=== PATIENT | male | born 1980 | race Caucasian/White ===

== ENCOUNTER 2017-10-25 06:36 | Emergency (ER) | payer MEDICARE, MEDICAID ==
[~2017-10-25] VITALS: Ht 175.3 cm; Wt 102.3 kg
[2017-10-25 08:08] LABS: BASOPHILS # (AUTO) 0.01 x10^3/uL (0-0.1); BASOPHILS % (AUTO) 0 % (0-1); EOSINOPHILS # (AUTO) 0.06 x10^3/uL (0-0.4); EOSINOPHILS % (AUTO) 1 % (1-7); LYMPHOCYTES # (AUTO) 0.74 x10^3/uL (1-3.4); LYMPHOCYTES % (AUTO) 11 % (22-44); MD NO; MEAN CORPUSCULAR HEMOGLOBIN 30.6 pg (27.5-34.5); MEAN CORPUSCULAR HGB CONC 33.9 g/dL (33.2-36.2); MEAN CORPUSCULAR VOLUME 90.4 fL (81-97); MEAN PLATELET VOLUME 6.6 fL (7.4-10.4); MONOCYTES # (AUTO) 1.04 x10^3/uL (0.2-0.8); MONOCYTES % (AUTO) 16 % (2-9); NEUTROPHILS # (AUTO) 4.63 x10^3/uL (1.8-6.8); NEUTROPHILS % (AUTO) 71 % (42-75); PLATELET COUNT 231 x10^3/uL (130-400); RED BLOOD COUNT 3.32 x10^6/uL (4.38-5.82); RED CELL DISTRIBUTION WIDTH 13.1 % (9.4-14.8)
[2017-10-25 08:22] LABS: ALBUMIN 3.5 g/dL (3.4-5.0); ANION GAP 9 mmol/L (5-15); CALCIUM 9.1 mg/dL (8.5-10.1); CHLORIDE 96 mmol/L (98-107)
[2017-10-25] MEDS ORDERED: phoslo PO (08:45)
[2017-10-25] MEDS ORDERED: CALC0.25 PO (08:45)
[2017-10-25 09:37] VITALS: BP 130/82
== END 2017-10-25 09:44 | disposition home or self-care (01) ==
LOC: ED 09:38
DX: M77.9 Enthesopathy, unspecified (principal); N18.3 Chronic kidney disease, stage 3 (moderate); Z99.2 Dependence on renal dialysis
CPT/HCPCS: 29260; 36415; 71046; 80048; 82040; 85025; 93005; 99285

== ENCOUNTER 2017-11-13 15:46 | Emergency (ER) | payer MEDICARE, MEDICAID ==
[~2017-11-13] VITALS: Ht 177.8 cm; Wt 104.0 kg
[~2017-11-13 15:46] MED LIST: CALC0.25 PO; phoslo PO
[2017-11-13 15:48] VITALS: BP 122/81
== END 2017-11-13 16:22 | disposition home or self-care (01) ==
LOC: ED 16:18
DX: K08.89 Other specified disorders of teeth and supporting structures (principal); Z88.8 Allergy status to other drugs, medicaments and biological substances
CPT/HCPCS: 99283

== ENCOUNTER → 2018-02-01 | Outpatient (CLI) | payer MEDICAID, MEDICARE | END | disposition home or self-care (01) | LOC: CVU 07:08 | PROVIDERS: ATTEND Internal Medicine Nephrology | DX: I07.1 Rheumatic tricuspid insufficiency (principal); N18.6 End stage renal disease; Z76.82 Awaiting organ transplant status | CPT/HCPCS: 93306 ==

== ENCOUNTER 2019-08-14 12:46 | Emergency (ER) | payer MEDICARE, OTHER ==
[~2019-08-14] VITALS: Ht 177.8 cm; Wt 118.6 kg
--- NOTE | 2019-08-14 13:17 | NUR ---
PT AMBULATORY TO E FROM TRIAGE WITH STEADY GAIT. PT WEARING MASK FOR COUGH. PLACED ON ISOLATION PRECAUTIONS PER BECKY GARZA. 39 Y/O M PRESENT STATING "DRY COUGH FOR ONE WEEK AND I HAD DIARRHEA ONCE THIS MORNING." DENIES PAIN, ABD PAIN, FEVER, TRAVELING, CHILLS, CP, SOB, N/V. A&OX4. CALL LIGHT IN REACH. FALL PRECUATIONS IN PLACE. SIDE RAILS UPX2. BECKY GARZA AT BEDSIDE FOR EVALUATION.
--- NOTE | 2019-08-14 14:40 | NUR ---
BECKY GARZA AT BEDSIDE DISCUSSING DISCHARGE POC WITH PT AND NEED TO ISOLATE AT HOME, PT VERBALIZED UNDERSTANDING AND OF DISCHARGE INSTRUCTIONS. AWAITING CHART AND D/C PAPERS FROM [facility].
--- NOTE | 2019-08-14 15:05 | NUR ---
REPORT AND TRANSFER OF CARE TO JEREMIAH WHITLEY AT THIS TIME
[2019-08-14 15:16] VITALS: BP 128/83
== END 2019-08-14 15:18 | disposition home or self-care (01) ==
LOC: ED 14:40
DX: B34.9 Viral infection, unspecified (principal)
CPT/HCPCS: 71045; 99283

== ENCOUNTER 2019-09-06 15:39 | Emergency (ER) | payer MEDICARE, MEDICAID ==
[~2019-09-06] VITALS: Ht 175.3 cm; Wt 118.2 kg
--- NOTE | 2019-09-06 16:01 | NUR ---
PT TO ROOM 31 PER PEDIS. PT IS A KIDNEY TRANSPLANT PATIENT, AND HAS A COUGH WITH MINIMAL SPUTUM. ORDERS TO RECEIVE A COVID TEST. MD AT BEDSIDE.
--- NOTE | 2019-09-06 16:13 | NUR ---
COVID TEST PERFORMED IN RIGHT NARIS, SWIRLING FOR 30 SEC. LAB AT BEDSIDE, XRAY AT BEDSIDE.
[2019-09-06 16:46] LABS: BASOPHILS # (AUTO) 0.02 x10^3/uL (0-0.1); BASOPHILS % (AUTO) 0 % (0-1); EOSINOPHILS # (AUTO) 0.02 x10^3/uL (0-0.4); EOSINOPHILS % (AUTO) 0 % (1-7); LYMPHOCYTES # (AUTO) 0.97 x10^3/uL (1-3.4); LYMPHOCYTES % (AUTO) 13 % (22-44); MD NO; MEAN CORPUSCULAR HEMOGLOBIN 30.1 pg (27.5-34.5); MEAN CORPUSCULAR VOLUME 91.2 fL (81-97); MEAN PLATELET VOLUME 7.3 fL (7.4-10.4); MONOCYTES # (AUTO) 0.56 x10^3/uL (0.2-0.8); MONOCYTES % (AUTO) 7 % (2-9); NEUTROPHILS # (AUTO) 6.03 x10^3/uL (1.8-6.8); NEUTROPHILS % (AUTO) 80 % (42-75); PLATELET COUNT 289 x10^3/uL (130-400); RED BLOOD COUNT 4.72 x10^6/uL (4.38-5.82); RED CELL DISTRIBUTION WIDTH 13.9 % (9.4-14.8)
[2019-09-06 16:48] LABS: ALBUMIN 3.8 g/dL (3.4-5.0); ANION GAP 5 mmol/L (5-15); CALCIUM 10.3 mg/dL (8.5-10.1); CHLORIDE 108 mmol/L (98-107); CREATININE 1.29 mg/dL (0.7-1.3)
--- NOTE | 2019-09-06 17:48 | NUR ---
DISCHARGE INSTRUCTIONS GIVEN TO PATIENT. PT VERBALIZES UNDERSTANDING OF ALL INSTRUCTIONS AND FOLLOW UP. MD DISCUSSED QUARANTINE AND WHEN TO EXPECT RESULTS FROM COVID TESTING. PT AMBULATED OUT OF ED PER PEDIS WITHOUT DIFF.
[2019-09-06 17:50] VITALS: BP 150/92
== END 2019-09-06 17:53 | disposition home or self-care (01) ==
LOC: ED 16:41
DX: J00 Acute nasopharyngitis [common cold] (principal); Z20.828 Contact with and (suspected) exposure to other viral communicable diseases; R06.02 Shortness of breath; R94.31 Abnormal electrocardiogram [ECG] [EKG]; Z94.0 Kidney transplant status
CPT/HCPCS: 36415; 71045; 80048; 82040; 85025; 93005; 99285

== ENCOUNTER 2020-01-01 14:35 | Emergency (ER) | payer MEDICARE, MEDICAID ==
[~2020-01-01] VITALS: Ht 177.8 cm; Wt 123.5 kg
[2020-01-01] MEDS ORDERED: ASPIRIN 81 MG TABLET CHEW PO ONE (15:00)
[2020-01-01] MEDS ORDERED: ASPIRIN 81 MG TABLET CHEW ONE (15:05)
[2020-01-01 15:24] LABS: BASOPHILS % (AUTO) 0 % (0-1); EOSINOPHILS # (AUTO) 0.02 x10^3/uL (0-0.4); EOSINOPHILS % (AUTO) 0 % (1-7); LYMPHOCYTES # (AUTO) 0.94 x10^3/uL (1-3.4); LYMPHOCYTES % (AUTO) 10 % (22-44); MD NO; MEAN CORPUSCULAR HEMOGLOBIN 29.9 pg (27.5-34.5); MEAN CORPUSCULAR HGB CONC 33.2 g/dL (33.2-36.2); MEAN CORPUSCULAR VOLUME 90.3 fL (81-97); MEAN PLATELET VOLUME 7.4 fL (7.4-10.4); MONOCYTES # (AUTO) 0.07 x10^3/uL (0.2-0.8); MONOCYTES % (AUTO) 1 % (2-9); NEUTROPHILS # (AUTO) 8.18 x10^3/uL (1.8-6.8); NEUTROPHILS % (AUTO) 89 % (42-75); PLATELET COUNT 273 x10^3/uL (130-400); RED BLOOD COUNT 4.54 x10^6/uL (4.38-5.82); RED CELL DISTRIBUTION WIDTH 13.5 % (9.4-14.8)
[2020-01-01 15:38] LABS: ALBUMIN 3.7 g/dL (3.4-5.0); ANION GAP 6 mmol/L (5-15); CALCIUM 9.6 mg/dL (8.5-10.1); CHLORIDE 101 mmol/L (98-107)
[2020-01-01 15:43] LABS: CREATININE 1.27 mg/dL (0.7-1.3); TROPONIN I < 0.015 ng/mL (0.000-0.045)
--- NOTE | 2020-01-01 16:01 | NUR ---
PT CHART UP FOR RECHECK. NAD NOTED AT THIS TIME.
[2020-01-01 17:06] VITALS: BP 133/81
--- NOTE | 2020-01-01 17:07 | NUR ---
PT DRESSING FOR DC. EDUCATED ON RX AND FOLLOW UP. NO FURTHER QUESTIONS AT THIS TIME.
== END 2020-01-01 17:08 | disposition home or self-care (01) ==
LOC: ED 17:02
DX: R07.89 Other chest pain (principal); Z94.0 Kidney transplant status
CPT/HCPCS: 36415; 71045; 80048; 82040; 83880; 84484; 85025; 93005; 99285